=== PATIENT | female | born 1935 | race Caucasian/White ===

== ENCOUNTER → 2018-08-05 | Outpatient (CLI) | payer MEDICARE, BC | LOC: LABWHC1 10:05 | PROVIDERS: ATTEND Family Medicine | DX: E83.52 Hypercalcemia (principal) | CPT/HCPCS: 36415; 82310; 83970 ==

== ENCOUNTER → 2019-05-04 | Outpatient (CLI) | payer MEDICARE, BC ==
[~2019-05-04] MED LIST: DENOSUMAB 60 MG/ML 1 ML SYRINGE SQ NR
[2019-05-04 14:49] VITALS: BP 168/62; PULSE 73; RESP 16; TEMP 98.5
== END | disposition home or self-care (01) ==
LOC: PROCWHC3 14:24
PROVIDERS: ATTEND Family Medicine
DX: M81.0 Age-related osteoporosis without current pathological fracture (principal)
CPT/HCPCS: 96372; J0897